=== PATIENT | male | born 1970 | race Caucasian/White ===

== ENCOUNTER 2017-08-04 16:20 | Emergency (ER) | payer OTHER ==
[2017-08-04] MEDS ORDERED: Cyclobenzaprine 10 MG Tab PO ONE ×2 (16:21→20:15)
[2017-08-04] MEDS ORDERED: Acetaminophen/oxyCODONE 325-5 MG Tab PO ONE ×2 (16:21→20:15)
[2017-08-04] MEDS ORDERED: Ketorolac 30 MG/ML SDV IM ONE (18:26)
[2017-08-04] MEDS ORDERED: Acetaminophen/HYDROcodone 325-10 MG Tab PO ONE (18:26)
--- NOTE | 2017-08-04 18:53 | EDM.PDOC ---
Scribed by Akanksha Omer 08/04/17 [id number] for Tor Oropeza MD <Tor Oropeza - Last Filed: 08/04/17 18:53> ED HPI GENERAL MEDICAL PROBLEM - General Chief Complaint: Back Pain or Injury Stated Complaint: FELL ON ICE 08/04 Time Seen by Provider: 08/04/17 18:15 Source of Information: Reports: Patient, RN, RN Notes Reviewed History Limitations: Reports: No Limitations Upper Back Pain Score (Numeric/FACES): 10 - Related Data Allergies Allergy/AdvReac Type Severity Reaction Status Date / Time No Known Allergies Allergy Verified 08/04/17 18:08 Home Meds: Home Meds . [No Known Home Meds] 08/04/17 [History] Past Medical History - Past Health History Medical/Surgical History: Denies Medical/Surgical History Social & Family History - Tobacco Use Smoking Status *Q: Never Smoker - Recreational Drug Use Recreational Drug Use: No Course - Vital Signs Last Recorded V/S: Last Vital Signs Temp 98.4 F 08/04/17 18:09 Pulse 70 08/04/17 18:09 Resp 16 08/04/17 18:09 BP 123/98 H 08/04/17 18:09 Pulse Ox 98 08/04/17 18:09 - Orders/Labs/Meds Meds: Medications Discontinued Medications Generic Name Dose Route Start Last Admin Trade Name Mirna PRN Reason Stop Dose Admin Hydrocodone Bitart/Acetaminophen 1 tab 08/04/17 18:26 08/04/17 18:41 [place] 325-10 Mg PO 08/04/17 18:27 1 tab ONETIME ONE Administration Cyclobenzaprine HCl 10 mg 08/04/17 20:15 08/04/17 20:24 Flexeril PO 08/04/17 20:16 10 mg ONETIME ONE Administration Cyclobenzaprine HCl Confirm 08/04/17 21:38 08/04/17 22:12 Flexeril Administered 08/04/17 21:39 Not Given Dose 20 mg .ROUTE .STK-MED ONE Ketorolac Tromethamine 60 mg 08/04/17 18:26 08/04/17 18:41 Toradol IM 08/04/17 18:27 60 mg ONETIME ONE Administration Oxycodone/Acetaminophen 1 tab 08/04/17 20:15 08/04/17 20:24 Percocet 325-5 Mg PO 08/04/17 20:16 1 tab ONETIME ONE Administration Oxycodone/Acetaminophen Confirm 08/04/17 21:38 08/04/17 22:12 Percocet 325-5 Mg Administered 08/04/17 21:39 Not Given Dose 3 tab .ROUTE .STK-MED ONE Departure - Departure Disposition: Home, Self-Care 01 Clinical Impression: Compression fracture of body of thoracic vertebra, Fall (on) (from) other stairs and steps, initial encounter - Discharge Information Instructions: Vertebral Fracture Referrals: PCP,None [Primary Care Provider] - Forms: ED Department Discharge Additional Instructions: no lifting greater than 15# rest, light activity avoid any additional trauma follow up in clinic 2 weeks, sooner if increase in pain, numbess or change in symptoms Percocet 5/325 one every 6 hours as needed for Pain #20 Flexeril 10mg one-j half to one every 8 hours as needed for muscle spasm #15 <Chhaya Bhatt - Last Filed: 08/05/17 06:29> ED HPI GENERAL MEDICAL PROBLEM - History of Present Illness INITIAL COMMENTS - FREE TEXT/NARRATIVE: ED with complaint of back and chest pain, Notes falling on stairs around 8 am today while carrying case of water. Landed on back with water landing on chest, mid neck and back pain. Chehest pain with taking big breaths and movement. ED ROS GENERAL - Review of Systems Review Of Systems: See Below Constitutional: Reports: No Symptoms HEENT: Reports: No Symptoms Respiratory: Reports: No Symptoms Cardiovascular: Reports: No Symptoms GI/Abdominal: Reports: No Symptoms Musculoskeletal: Reports: Neck Pain, Back Pain Skin: Reports: No Symptoms Neurological: Reports: No Symptoms ED EXAM, UPPER BACK/NECK PAIN - Physical Exam Exam: See Below Exam Limited By: No Limitations General Appearance: Alert, Mild Distress Eye Exam: Bilateral Eye: EOMI, PERRL Ears Exam: Normal External Exam Nose Exam: Normal Inspection Throat/Mouth Exam: Normal Inspection, Normal Voice Head Exam: Atraumatic, Normocephalic Neck Exam: Abnormal Alignment, Paraspinous Muscle Tender, Spinous Processes Tender, Tender Lateral, Tender Midline Nexus Criteria: Posterior, Midline Cervical Tenderness, Painful Distraction Injuries. No: Evidence of Intoxication, Altered Level of Consciousness, Focal Neurological Deficit Cardiovascular/Respiratory: Regular Rate, Rhythm, Normal Peripheral Pulses, Normal Breath Sounds GI/Abdominal: Normal Bowel Sounds Extremities: Normal Range of Motion Neurologic: documentation manager II-XII nml As Tested, No Motor/Sensory Deficits, Alert, Normal Mood/Affect, Oriented x 3. 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 No sign of rib fracture. non specific enlarged 2.5cm right paresophageal lymph node. - Re-Assessments/Exams Free Text/Narrative Re-Assessment/Exam: 08/05/17 06:27 Discussed findings with patient including need of follow up with PCP regarding incidental finding of enlarge paraesophageal node. TC consult Dr. Sandoval regarding T4 fracture. Follow up recommended in 2 weeks. No lifting greater than 15 #. Departure - Departure Time of Disposition: 22:10 Condition: Fair I have read and agree with the documentation that has been completed regarding this visit. By signing this record, I attest that the documentation was completed in my physical presence and is an accurate record of the encounter.
[2017-08-04] MEDS ORDERED: Cyclobenzaprine 10 MG Tab ONE (21:38)
[2017-08-04] MEDS ORDERED: Acetaminophen/oxyCODONE 325-5 MG Tab ONE (21:38)
== END 2017-08-04 22:10 | disposition home or self-care (01) ==
LOC: DL.ED 16:20
DX: S22.049A Unspecified fracture of fourth thoracic vertebra, initial encounter for closed fracture (principal); W10.9XXA Fall (on) (from) unspecified stairs and steps, initial encounter
CPT/HCPCS: 71250; 72125; 72128; 72131; 99284; A9270; J1885

== ENCOUNTER 2021-01-14 21:44 | Emergency (ER) | payer OTHER ==
[2021-01-14] MEDS ORDERED: Cyclobenzaprine 10 MG Tab PO ONE (21:45)
[2021-01-14] MEDS ORDERED: Ibuprofen 800 MG Tab PO ONE (21:45)
[2021-01-14] MEDS ORDERED: Haloperidol Lactate 5 MG/ML SDV IVPUSH ONE (22:01)
[2021-01-14] MEDS ORDERED: Sodium Chloride 0.9% 10 ML Syringe FLUSH PRN (22:01)
--- NOTE | 2021-01-14 22:05 | EDM.PDOC ---
ED HPI GENERAL MEDICAL PROBLEM - General Chief Complaint: Back Pain or Injury Stated Complaint: INJURED BACK, Time Seen by Provider: 01/14/21 22:03 Source of Information: Reports: Patient History Limitations: Reports: No Limitations - History of Present Illness INITIAL COMMENTS - FREE TEXT/NARRATIVE: Patient is a unfortunate 50-year-old male who presents emergency dep artment today with complaint of low back pain. The patient reports that he was working out and lifting weights 5 days ago and felt a pull in his low back. The patient reports that he has had pain ever since however, he was working today and felt increasing low pain. This concerned the patient so he sought care in the emergency department today for further evaluation. The patient reports that for the past 12 years he has had issues with his back and has had an MRI as recently as 2 weeks ago which showed effacement and degenerative disc disease in L4-L5 and S1. The patient denies any saddle anesthesia and has had no loss of bowel or bladder function no fever no chills. Patient reports the pain is worse with range of motion or palpation it does improve with rest but does not entirely alleviate Lower Back Pain Score (Numeric/FACES): 10 - Related Data Allergies Allergy/AdvReac Type Severity Reaction Status Date / Time No Known Allergies Allergy Verified 08/04/17 18:08 Home Meds: Home Meds Cyclobenzaprine [Flexeril] 10 mg PO TID PRN #15 tab 01/14/21 [Rx] Ibuprofen 800 mg PO TID #15 tablet 01/14/21 [Rx] Lidocaine [Blue-Emu Lidocaine Patch] 1 each TP DAILY PRN #10 adh..patch 01/14/21 [Rx] Past Medical History - Past Health History Medical/Surgical History: Denies Medical/Surgical History ED ROS GENERAL - Review of Systems Review Of Systems: See Below Constitutional: Denies: Fever, Chills Musculoskeletal: Reports: Back Pain ED EXAM,LOWER BACK PAIN/INJURY - Physical Exam Exam: See Below Exam Limited By: No Limitations General Appearance: Alert, WD/WN, Mild Distress Neck: Normal Inspection, Supple, Non-Tender, Full Range of Motion Respiratory/Chest: No Respiratory Distress, Lungs Clear, Normal Breath Sounds, No Accessory Muscle Use, Chest Non-Tender Cardiovascular: Normal Peripheral Pulses, Regular Rate, Rhythm, No Edema, No Gallop, No JVD, No Murmur, No Rub GI/Abdominal: Normal Bowel Sounds, Soft, Non-Tender, No Organomegaly, No Distention, No Abnormal Bruit, No Mass Back Exam: Normal Inspection, Other (Bilateral paraspinous muscle tenderness at the L4-L5 level that radiates to the bilateral SI joints and bilateral buttocks, negative spasm, normal DTRs, positive leg lift bilaterally 30 degrees) Extremities: Normal Inspection Neurological: Alert, Normal Mood/Affect, Normal Dorsiflexion, CN II-XII Intact, Normal Plantar Flexion, Normal Gait, Normal Reflexes, No Motor/Sensory Deficits, Oriented x 3 DTR - Lower Extremities: 4+: Knee (R), Knee (L), Ankle (R), Ankle (L) Skin Exam: Warm, Dry, Intact Course - Vital Signs Text/Narrative:: Work-up today is reassuring, patient has had some improvement in pain but no resolution of pain, the patient will be discharged home and encouraged to follow-up outpatient with PCP or to return to the emergency department for any worsening condition Last Recorded V/S: Last Vital Signs Temp 98.3 F 01/14/21 21:59 Pulse 79 01/14/21 21:59 Resp 20 01/14/21 21:59 BP 143/79 H 01/14/21 21:59 Pulse Ox 97 01/14/21 21:59 - Orders/Labs/Meds Orders: Active Orders 24 hr Category Date Time Status Sodium Chloride 0.9% [Saline Flush] Med 01/14/21 22:01 Active 10 ml FLUSH ASDIRECTED PRN Saline Lock Insert [OM.PC] Stat Oth 01/14/21 22:01 Ordered Medication Orders Sodium Chloride (Sodium Chloride 0.9% 10 Ml Syringe) 10 ml FLUSH ASDIRECTED PRN PRN Reason: Keep Vein Open Meds: Medications Generic Name Dose Route Start Last Admin Trade Name Freq PRN Reason Stop Dose Admin Sodium Chloride 10 ml 01/14/21 22:01 Sodium Chloride 0.9% 10 Ml Syringe FLUSH ASDIRECTED PRN Keep Vein Open Discontinued Medications Generic Name Dose Route Start Last Admin Trade Name Freq PRN Reason Stop Dose Admin Haloperidol Lactate 5 mg 01/14/21 22:01 01/14/21 22:16 Haloperidol Lactate 5 Mg/Ml Sdv IVPUSH 01/14/21 22:02 5 mg ONETIME ONE Administration Departure - Departure Time of Disposition: 23:09 Disposition: DC[facility] to [facility] 05 Condition: Good Clinical Impression: Lumbar radiculopathy Lumbar strain Qualifiers: Encounter type: initial encounter Qualified Code(s): S39.012A - Strain of muscle, fascia and tendon of lower back, initial encounter - Discharge Information *PRESCRIPTION DRUG MONITORING PROGRAM REVIEWED*: No *COPY OF PRESCRIPTION DRUG MONITORING REPORT IN PATIENT ALLYSSA: No Prescriptions: Lidocaine [Blue-Emu Lidocaine Patch] 1 each TP DAILY PRN #10 adh..patch PRN Reason: Pain Cyclobenzaprine [Flexeril] 10 mg PO TID PRN #15 tab PRN Reason: Pain Ibuprofen 800 mg PO TID #15 tablet Instructions: Muscle Strain, [id number], Lumbosacral Strain Referrals: PCP,Not In Area [Ordering Only Provider] - Forms: ED Department Discharge Additional Instructions: Home, rest, heating pad 20 minutes at a time 3-4 times daily, avoid bending at the waist, no lifting greater than 10 pounds for 1 week, return to the emergency department for any worsening condition Sepsis Event Note (ED) - Focused Exam Vital Signs: Vital Signs Temp Pulse Resp BP Pulse Ox 01/14/21 21:59 98.3 F 79 20 143/79 H 97 - My Orders Last 24 Hours: My Active Orders 01/14/21 22:01 Sodium Chloride 0.9% [Saline Flush] 10 ml FLUSH ASDIRECTED PRN Saline Lock Insert [OM.PC] Stat - Assessment/Plan Last 24 Hours: My Active Orders 01/14/21 22:01 Sodium Chloride 0.9% [Saline Flush] 10 ml FLUSH ASDIRECTED PRN Saline Lock Insert [OM.PC] Stat
--- NOTE | 2021-01-14 22:59 | CR ---
PROCEDURE INFORMATION: Exam: XR Lumbosacral Spine Exam date and time: 01/14/2021 10:32 PM Age: 50 years old Clinical indication: Low back pain TECHNIQUE: Imaging protocol: XR of the lumbosacral spine. Views: 2 or 3 views. COMPARISON: CT Lumbar Spine wo Cont 08/04/2017 8:20 PM FINDINGS: Bones/joints: Moderate loss of disc height seen at the L5-S1 level compatible with degenerative disc disease. Soft tissues: Unremarkable. IMPRESSION: 1. There are no acute osseous findings. 2. Moderate loss of disc height at L5-S1 compatible with degenerative disc disease.
[2021-01-14] MEDS ORDERED: Cyclobenzaprine 10 MG Tab ONE (23:20)
[2021-01-14] MEDS ORDERED: Ibuprofen 800 MG Tab ONE (23:20)
== END 2021-01-14 23:38 | disposition designated cancer center or children's hospital (05) ==
LOC: DL.ED 21:44
DX: S39.012A Strain of muscle, fascia and tendon of lower back, initial encounter (principal); M54.16 Radiculopathy, lumbar region; X50.0XXA Overexertion from strenuous movement or load, initial encounter; Y99.0 Civilian activity done for income or pay
CPT/HCPCS: 72100; 96374; 99283; 99283-25; A9270-GY; J1630